=== PATIENT | female | born 1955 | race Caucasian/White ===

== ENCOUNTER 2019-05-29 20:23 | Inpatient (IN) | payer OTHER ==
[~2019-05-29] VITALS: Ht 162.6 cm; Wt 99.9 kg
[2019-05-29] MEDS ORDERED: SOD CHLORIDE 0.9% 1,000 ML IV STA (22:33)
--- NOTE | 2019-05-29 22:35 | ERD ---
ER Documentation Chief Complaint Chief Complaint Pt reports short term memory loss that started 1-2 hours ago HPI This is a 63-year-old woman brought in by family members for recent confusion and memory loss, patient lost her keys outside of her front door and could not find them and called a family member to help her out. He states Emma had trouble recalling the events of today including how she got to his house (he drove her to his house because she appeared confused). She admits to not being able to think clearly. She denies headache or blurry vision, no weakness in her arms or legs, no slurred speech, no chest pain or shortness of breath, no fevers or chills, no dysuria. ROS All systems reviewed and are negative except as per history of present illness. Allergies Allergies: Coded Allergies: No Known Allergy (Unverified , 05/29/19) PMhx/Soc Obesity, hypertension, hypothyroidism Medical and Surgical Hx: pt denies Surgical Hx Hx Cardiac Disorders: Yes (HTN, HLD) Hx Miscellaneous Medical Probl: Yes (HYPOTHYROIDISM) Hx Alcohol Use: Yes Hx Substance Use: No Hx Tobacco Use: No Smoking Status: Unknown if ever smoked FmHx Family History: No diabetes Physical Exam Vitals Vital Signs Date Temp Pulse Resp B/P (MAP) Pulse Ox O2 O2 Flow FiO2 Time Delivery Rate 05/29/19 99 18 154/71 99 Room Air 23:48 (98) 05/29/19 97.8 87 16 187/81 100 20:32 (116) Physical Exam GENERAL: Well-developed, well-nourished, well-hydrated, in no apparent distress, looks nontoxic in appearance HEENT: Moist mucous membranes, pink conjunctiva, no cervical spine tenderness or step-off deformities, no goiter, no jaundice or icterus, extraocular movements intact without pain. No submandibular induration, and no pharyngeal erythema NEURO: Alert and oriented 3, cranial nerves II through XII intact bilaterally, pupils equal round reactive to light, no focal deficits or facial asymmetry, sensation intact distally Strength 5/5 in upper and lower extremities bilaterally CARDIAC: Regular rate and rhythm, no murmurs rubs or gallops LUNGS: Clear bilaterally no wheezing crackles or stridor ABDOMEN: Soft nontender, no guarding, no rigidity, no rebound, no psoas sign no obturator sign. Normoactive bowel sounds SKIN: Warm and dry to touch, no abrasions, contusions, or hematomas, no lacerations, no ecchymosis, no target lesions, and without ulcers EXTREMITIES: No clubbing cyanosis or edema, calves are bilaterally symmetrical, no Homans sign, no popliteal cord sign. Distal pulses equal and bilateral PSYCH: Normal affect without agitation or irritability Result Diagram: 05/29/19224605/29/192246 Results 24 hrs Laboratory Tests Test 05/29/19 22:47 White Blood Count 10.4 10^3/ul Red Blood Count 4.94 10^6/ul Hemoglobin 14.7 g/dl Hematocrit 45.6 % Mean Corpuscular Volume 92.3 fl Mean Corpuscular Hemoglobin 29.8 pg Mean Corpuscular Hemoglobin Concent 32.2 g/dl Red Cell Distribution Width 11.9 % Platelet Count 215 10^3/UL Mean Platelet Volume 11.3 fl Immature Granulocytes % 0.300 % Neutrophils % 87.5 % Lymphocytes % 8.7 % Monocytes % 3.0 % Eosinophils % 0.1 % Basophils % 0.4 % Nucleated Red Blood Cells % 0.0 /100WBC Immature Granulocytes # 0.030 10^3/ul Neutrophils # 9.1 10^3/ul Lymphocytes # 0.9 10^3/ul Monocytes # 0.3 10^3/ul Eosinophils # 0.0 10^3/ul Basophils # 0.0 10^3/ul Nucleated Red Blood Cells # 0.0 10^3/ul Urine Color YELLOW Urine Clarity SLIGHTLY CLOUDY Urine pH 5.0 Urine Specific [place] 1.021 Urine Ketones TRACE mg/dL Urine Nitrite NEGATIVE mg/dL Urine Bilirubin NEGATIVE mg/dL Urine Urobilinogen NEGATIVE mg/dL Urine Leukocyte Esterase 3+ Clifford/ul Urine Microscopic RBC 9 /HPF Urine Microscopic WBC 106 /HPF Urine Mucus FEW /HPF Urine Hemoglobin 1+ mg/dL Urine Glucose NEGATIVE mg/dL Urine Total Protein NEGATIVE mg/dl Sodium Level 142 mmol/L Potassium Level 3.8 mmol/L Chloride Level 105 mmol/L Carbon Dioxide Level 26 mmol/L Anion Gap 11 Blood Urea Nitrogen 14 mg/dl Creatinine 0.62 mg/dl Est Glomerular Filtrat Rate mL/min > 60 mL/min Glucose Level 150 mg/dl Calcium Level 9.4 mg/dl Total Bilirubin 0.3 mg/dl Direct Bilirubin 0.00 mg/dl Indirect Bilirubin 0.3 mg/dl Aspartate Amino Transf (AST/SGOT) 26 IU/L Alanine Aminotransferase (ALT/SGPT) 25 IU/L Alkaline Phosphatase 114 IU/L Troponin I < 0.012 ng/ml Total Protein 7.8 g/dl Albumin 4.5 g/dl Globulin 3.30 g/dl Albumin/Globulin Ratio 1.36 Lipase 82 U/L Current Medications Medications Dose Sig/Alan Start Time Status Last (Trade) Ordered Route PRN Stop Time Admin Dose Reason Admin Sodium 1,000 ml @ Q1H STAT 05/29/19 DC 05/29/19 Chloride 1,000 mls/hr IV 22:33 22:54 05/29/19 23:32 Ceftriaxone 50 ml @ ONCE ONCE 05/30/19 05/29/19 Sodium 100 mls/hr IVPB 00:00 23:47 05/30/19 00:29 Procedures/MDM IV line was established patient was placed on bus driver/monitor rhythm strip revealed a sinus rhythm at about 80 bpm with upright P and T waves. Patient was afebrile Chest X-ray 1V Interpreted by me: Soft Tissue: No acute abnormalities Bones: No acute abnormalities Mediastinum/Cardiac Silhouette/Lungs: No acute abnormalities EKG performed, read by me: 83 bpm, normal sinus rhythm, normal axis, no acute ST segment changes, narrow QRS complex, with good R-wave progression in precordial leads. CT scan of the brain was negative for acute bleed mass or shift I administered 1 L normal saline IV CBC and electrolytes were normal, liver function tests were normal, troponin was negative, urinalysis was positive for infection. I administered ceftriaxone 1 g IV. Patient will be admitted to [facility] for continued IV antibiotics. Departure Diagnosis: Primary Impression: Acute encephalopathy Additional Impressions: Acute UTI Altered mental status Altered mental status type: disorientation Qualified Codes: R41.0 - Disorientation, unspecified Condition: ALANA Martinez MD May 29, 2019 22:35
[2019-05-30] MEDS ORDERED: CEFTRIAXONE 1 GM/50 ML (PMX) 50 ML IVPB ONE
[2019-05-30 01:00] VITALS: Ht 162.6 cm; Wt 99.9 kg
[2019-05-30 01:15] VITALS: BP 174/73; PULSE 101; RESP 18
[2019-05-30] MEDS ORDERED: ASPI-903 PO (01:20)
[2019-05-30] MEDS ORDERED: MEVA40 PO (01:20)
[2019-05-30] MEDS ORDERED: METO-319 PO (01:20)
[2019-05-30] MEDS ORDERED: LEVO112T57 PO (01:20)
[2019-05-30] MEDS ORDERED: NYST15CR28 TOP (01:20)
[2019-05-30] MEDS ORDERED: TRIA15CR55 TOP (01:20)
[2019-05-30] MEDS ORDERED: METOPROLOL 50 MG TAB PO ONE (02:00)
[2019-05-30] MEDS ORDERED: ACETAMINOPHEN 325 MG TAB PO PRN (05:00)
[2019-05-30] MEDS ORDERED: ALBUTEROL/IPRATROPIUM (NEB) 3 ML AMP HHN PRN (05:00)
[2019-05-30] MEDS ORDERED: ONDANSETRON 4 MG INJ IV PRN (05:00)
[2019-05-30] MEDS ORDERED: NACL 0.9% 3 ML SYG IV SCH (05:00)
[2019-05-30] MEDS: LEVOTHYROXINE 112 MCG TAB PO SCH (06:08)
--- NOTE | 2019-05-30 07:39 | HP ---
Date/Time of Note Date/Time of Note DATE: 05/30/19 TIME: 07:33 Assessment/Plan VTE Prophylaxis Pharmacological prophylaxis: heparin Lines/Catheters IV Catheter Type (from Nrs): Saline Lock Assessment/Plan Assessment/Plan 1. Short-term memory loss: Patient has been grieving because of loss of a close family member/friend and I believe this is the cause -Head CT without acute findings -will obtain MRI to make sure there is no organic cause 2. Hypertension: BP not at goal -Adjust antihypertensives as needed 3. Dyslipidemia: Continue statin 4. Hypothyroidism: Continue Synthroid Result Diagram: 05/30/1951105/30/19511 Results 24hrs Laboratory Tests Test 05/29/19 22:47 05/30/19 05:12 White Blood Count 10.4 8.5 Red Blood Count 4.94 4.61 Hemoglobin 14.7 13.6 Hematocrit 45.6 42.7 Mean Corpuscular Volume 92.3 92.6 Mean Corpuscular Hemoglobin 29.8 29.5 Mean Corpuscular Hemoglobin Concent 32.2 31.9 L Red Cell Distribution Width 11.9 12.3 Platelet Count 215 220 Mean Platelet Volume 11.3 H 11.6 H Immature Granulocytes % 0.300 0.400 Neutrophils % 87.5 H 78.4 H Lymphocytes % 8.7 L 13.2 L Monocytes % 3.0 7.1 Eosinophils % 0.1 0.4 Basophils % 0.4 0.5 Nucleated Red Blood Cells % 0.0 0.0 Immature Granulocytes # 0.030 0.030 Neutrophils # 9.1 H 6.7 Lymphocytes # 0.9 1.1 Monocytes # 0.3 0.6 Eosinophils # 0.0 0.0 Basophils # 0.0 0.0 Nucleated Red Blood Cells # 0.0 0.0 Urine Color YELLOW Urine Clarity SLIGHTLY CLOUDY A Urine pH 5.0 Urine Specific [place] 1.021 Urine Ketones TRACE A Urine Nitrite NEGATIVE Urine Bilirubin NEGATIVE Urine Urobilinogen NEGATIVE Urine Leukocyte Esterase 3+ H Urine Microscopic RBC 9 H Urine Microscopic WBC 106 H Urine Mucus FEW A Urine Hemoglobin 1+ H Urine Glucose NEGATIVE Urine Total Protein NEGATIVE Sodium Level 142 141 Potassium Level 3.8 3.9 Chloride Level 105 108 Carbon Dioxide Level 26 25 Anion Gap 11 8 Blood Urea Nitrogen 14 11 Creatinine 0.62 0.53 Est Glomerular Filtrat Rate mL/min > 60 > 60 Glucose Level 150 116 Calcium Level 9.4 9.1 Total Bilirubin 0.3 0.4 Direct Bilirubin 0.00 0.00 Indirect Bilirubin 0.3 0.4 Aspartate Amino Transf (AST/SGOT) 26 24 Alanine Aminotransferase (ALT/SGPT) 25 22 Alkaline Phosphatase 114 97 Troponin I < 0.012 < 0.012 Total Protein 7.8 6.7 # Albumin 4.5 3.7 Globulin 3.30 H 3.00 Albumin/Globulin Ratio 1.36 1.23 Lipase 82 Magnesium Level 2.0 Creatine Kinase 82 Creatine Kinase Index 1.1 Creatinine Kinase MB (Mass) 0.92 Triglycerides Level 148 Cholesterol Level 157 LDL Cholesterol, Calculated 81 HDL Cholesterol 46 Cholesterol/HDL Ratio 3.4 Thyroid Stimulating Hormone (TSH) Pending HPI/ROS Admit Date/Time Admit Date/Time May 30, 2019 at 00:12 Hx of Present Illness Patient is a 63-year-old female with a history of hypertension, dyslipidemia, hypothyroidism who presents the ER complaining of memory loss and confusion. Symptoms been going on for 1 day. She said all of a sudden she started becoming forgetful including not remembering where she puts her keys. Her family is started asking her question and noticed that she was confused. Currently she is at her baseline. Denied focal weakness, slurred speech, diplopia, headache, chest pain, shortness of breath, fever/chills or any other symptoms as a matter. She said she has been grieving for 1 week because of loss of a close friend/family. When presented to the ER, BP 187/81. Head CT without acute findings. UA was consistent with UTI. Basic labs within acceptable range. PMH/Family/Social Past Medical History Medical History: other (see hpi) Medications Current Medications IV Flush (NS 3 ml) 3 ml PER PROTOCOL IV ; Start 05/30/19 at 05:00 Ondansetron HCl (Zofran Inj) 4 mg Q6H PRN IV NAUSEA/VOMITING; Start 05/30/19 at 05:00 Acetaminophen (Tylenol Tab) 650 mg Q6H PRN PO .PAIN 1-3 OR TEMP; Start 05/30/19 at 05:00 Enoxaparin Sodium (Lovenox) 40 mg DAILY SC ; Start 05/30/19 at 09:00 Albuterol/ Ipratropium (Duoneb) 3 ml Q2H RESP THERAPY PRN HHN SHORTNESS OF BREATH; Start 05/30/19 at 05:00 Aspirin (Aspirin) 81 mg QHS PO ; Start 05/30/19 at 21:00 Levothyroxine Sodium (Synthroid) 112 mcg BEFORE BREAKFAST PO Last administered on 05/30/19at 06:08; Admin Dose 112 MCG; Start 05/30/19 at 07:00 Metoprolol Succinate (Toprol Xl) 50 mg BID PO ; Start 05/30/19 at 09:00 Triamcinolone Acetonide (Kenalog 0.1% Cr) 1 applic DAILY TOP ; Start 05/30/19 at 09:00 Atorvastatin Calcium (Lipitor) 10 mg DAILY@21 PO ; Start 05/30/19 at 21:00 Coded Allergies: No Known Allergy (Unverified , 05/29/19) Past Surgical History Past Surgical Hx: other (see hpi) Family History Significant Family History: no pertinent family hx Social History Alcohol Use: none Smoking Status: Former smoker Drug Use: none Exam/Review of Systems Vital Signs Vitals Vital Signs Date Temp Pulse Resp B/P (MAP) Pulse Ox O2 O2 Flow FiO2 Time Delivery Rate 05/30/19 99.2 101 18 174/73 99 Room Air 01:15 (106) Intake and Output 05/29/19 05/29/19 05/30/19 1515:00 23:00 07:00 IntakeIntake Total 750 ml BalanceBalance 750 ml Exam Constitutional: alert, oriented, well developed Head: normocephalic, atraumatic Eyes: EOMI, PERRL Respiratory: clear to auscultation Cardiovascular: regular rate and rhythm, nl pulses Gastrointestinal: soft, non-tender Extremities: normal pulses Neurological: nl mental status, nl speech, nl strength JOHNNY SOLIS MD May 30, 2019 07:39
[2019-05-30] MEDS ORDERED: hydrALAzine 20 MG INJ IV PRN (08:00)
[2019-05-30 08:17] VITALS: BP 141/65; PULSE 81; RESP 18
[2019-05-30] MEDS: TRIAMCINOLONE ACET 0.1% 15 GM CR TOP SCH (09:00)
[2019-05-30] MEDS: METOPROLOL (XL) 50 MG TAB PO SCH ×2 (09:10→20:36)
[2019-05-30] MEDS: ENOXAPARIN 40 MG/0.4 ML SYG SC SCH (09:36)
[2019-05-30 14:00] VITALS: BP 144/67; PULSE 87; RESP 18
--- NOTE | 2019-05-30 18:16 | PN ---
Date/Time of Note Date/Time of Note DATE: 05/30/19 TIME: 18:11 Assessment/Plan VTE Prophylaxis Risk score (from [facility] [place], [place]0 risk: 5 SCD applied (from [facility] [place] Yes Pharmacological prophylaxis: NA/contraindicated Pharm contraindication: low risk/ambulating Lines/Catheters IV Catheter Type (from [facility]): Saline Lock Assessment/Plan Hospital Course 1. Transient global amnesia -Patient had a 7-hour window where she did not have recollection of events, patient has since improved -Patient has been grieving because of loss of a close friend which may have been the cause -Head CT without acute findings -MRI unable to be done secondary to metal implants in the mouth -Neurology consultation obtained 2. Hypertension-BP has improved -Continue home meds 3. Dyslipidemia: Continue statin 4. Hypothyroidism: Continue Synthroid Prophylaxis: SCDs DC planning: Anticipate DC home tomorrow after neurology evaluation Result Diagram: 05/30/1912 05/30/19 0512 Results 24hrs Laboratory Tests Test 05/29/19 22:47 05/30/19 05:12 05/30/19 11:05 White Blood Count 10.4 8.5 Red Blood Count 4.94 4.61 Hemoglobin 14.7 13.6 Hematocrit 45.6 42.7 Mean Corpuscular Volume 92.3 92.6 Mean Corpuscular Hemoglobin 29.8 29.5 Mean Corpuscular 32.2 31.9 L Hemoglobin Concent Red Cell Distribution Width 11.9 12.3 Platelet Count 215 220 Mean Platelet Volume 11.3 H 11.6 H Immature Granulocytes % 0.300 0.400 Neutrophils % 87.5 H 78.4 H Lymphocytes % 8.7 L 13.2 L Monocytes % 3.0 7.1 Eosinophils % 0.1 0.4 Basophils % 0.4 0.5 Nucleated Red Blood Cells % 0.0 0.0 Immature Granulocytes # 0.030 0.030 Neutrophils # 9.1 H 6.7 Lymphocytes # 0.9 1.1 Monocytes # 0.3 0.6 Eosinophils # 0.0 0.0 Basophils # 0.0 0.0 Nucleated Red Blood Cells # 0.0 0.0 Urine Color YELLOW Urine Clarity SLIGHTLY CLOUDY A Urine pH 5.0 Urine Specific [place] 1.021 Urine Ketones TRACE A Urine Nitrite NEGATIVE Urine Bilirubin NEGATIVE Urine Urobilinogen NEGATIVE Urine Leukocyte Esterase 3+ H Urine Microscopic RBC 9 H Urine Microscopic WBC 106 H Urine Mucus FEW A Urine Hemoglobin 1+ H Urine Glucose NEGATIVE Urine Total Protein NEGATIVE Sodium Level 142 141 Potassium Level 3.8 3.9 Chloride Level 105 108 Carbon Dioxide Level 26 25 Anion Gap 11 8 Blood Urea Nitrogen 14 11 Creatinine 0.62 0.53 Est Glomerular Filtrat > 60 > 60 Rate mL/min Glucose Level 150 116 Calcium Level 9.4 9.1 Total Bilirubin 0.3 0.4 Direct Bilirubin 0.00 0.00 Indirect Bilirubin 0.3 0.4 Aspartate Amino 26 24 Transf (AST/SGOT) Alanine 25 22 Aminotransferase (ALT/SGPT) Alkaline Phosphatase 114 97 Troponin I < 0.012 < 0.012 < 0.012 Total Protein 7.8 6.7 # Albumin 4.5 3.7 Globulin 3.30 H 3.00 Albumin/Globulin Ratio 1.36 1.23 Lipase 82 Hemoglobin A1c 5.4 Magnesium Level 2.0 Creatine Kinase 82 81 Creatine Kinase Index 1.1 1.0 Creatinine Kinase MB (Mass) 0.92 0.80 Triglycerides Level 148 Cholesterol Level 157 LDL Cholesterol, Calculated 81 HDL Cholesterol 46 Cholesterol/HDL Ratio 3.4 Thyroid Stimulating 1.020 Hormone (TSH) Subjective 24 Hr Interval Summary Constitutional: no complaints Exam/Review of Systems Exam Vitals Vital Signs Date Temp Pulse Resp B/P (MAP) Pulse Ox O2 O2 Flow FiO2 Time Delivery Rate 05/30/19 98.5 87 18 144/67 96 Room Air 14:00 (92) Intake and Output 05/29/19 05/29/19 05/30/19 1515:00 23:00 07:00 IntakeIntake Total 750 ml BalanceBalance 750 ml Constitutional: alert, oriented Respiratory: clear to auscultation Cardiovascular: regular rate and rhythm Gastrointestinal: soft; No distended Musculoskeletal: nl extremities to inspection Results Results 24hrs Laboratory Tests Test 05/29/19 22:47 05/30/19 05:12 05/30/19 11:05 White Blood Count 10.4 8.5 Red Blood Count 4.94 4.61 Hemoglobin 14.7 13.6 Hematocrit 45.6 42.7 Mean Corpuscular Volume 92.3 92.6 Mean Corpuscular Hemoglobin 29.8 29.5 Mean Corpuscular 32.2 31.9 L Hemoglobin Concent Red Cell Distribution Width 11.9 12.3 Platelet Count 215 220 Mean Platelet Volume 11.3 H 11.6 H Immature Granulocytes % 0.300 0.400 Neutrophils % 87.5 H 78.4 H Lymphocytes % 8.7 L 13.2 L Monocytes % 3.0 7.1 Eosinophils % 0.1 0.4 Basophils % 0.4 0.5 Nucleated Red Blood Cells % 0.0 0.0 Immature Granulocytes # 0.030 0.030 Neutrophils # 9.1 H 6.7 Lymphocytes # 0.9 1.1 Monocytes # 0.3 0.6 Eosinophils # 0.0 0.0 Basophils # 0.0 0.0 Nucleated Red Blood Cells # 0.0 0.0 Urine Color YELLOW Urine Clarity SLIGHTLY CLOUDY A Urine pH 5.0 Urine Specific [place] 1.021 Urine Ketones TRACE A Urine Nitrite NEGATIVE Urine Bilirubin NEGATIVE Urine Urobilinogen NEGATIVE Urine Leukocyte Esterase 3+ H Urine Microscopic RBC 9 H Urine Microscopic WBC 106 H Urine Mucus FEW A Urine Hemoglobin 1+ H Urine Glucose NEGATIVE Urine Total Protein NEGATIVE Sodium Level 142 141 Potassium Level 3.8 3.9 Chloride Level 105 108 Carbon Dioxide Level 26 25 Anion Gap 11 8 Blood Urea Nitrogen 14 11 Creatinine 0.62 0.53 Est Glomerular Filtrat > 60 > 60 Rate mL/min Glucose Level 150 116 Calcium Level 9.4 9.1 Total Bilirubin 0.3 0.4 Direct Bilirubin 0.00 0.00 Indirect Bilirubin 0.3 0.4 Aspartate Amino 26 24 Transf (AST/SGOT) Alanine 25 22 Aminotransferase (ALT/SGPT) Alkaline Phosphatase 114 97 Troponin I < 0.012 < 0.012 < 0.012 Total Protein 7.8 6.7 # Albumin 4.5 3.7 Globulin 3.30 H 3.00 Albumin/Globulin Ratio 1.36 1.23 Lipase 82 Hemoglobin A1c 5.4 Magnesium Level 2.0 Creatine Kinase 82 81 Creatine Kinase Index 1.1 1.0 Creatinine Kinase MB (Mass) 0.92 0.80 Triglycerides Level 148 Cholesterol Level 157 LDL Cholesterol, Calculated 81 HDL Cholesterol 46 Cholesterol/HDL Ratio 3.4 Thyroid Stimulating 1.020 Hormone (TSH) Medications Medication Current Medications IV Flush (NS 3 ml) 3 ml PER PROTOCOL IV ; Start 05/30/19 at 05:00 Ondansetron HCl (Zofran Inj) 4 mg Q6H PRN IV NAUSEA/VOMITING; Start 05/30/19 at 05:00 Acetaminophen (Tylenol Tab) 650 mg Q6H PRN PO .PAIN 1-3 OR TEMP; Start 05/30/19 at 05:00 Enoxaparin Sodium (Lovenox) 40 mg DAILY SC Last administered on 05/30/19at 09:36; Admin Dose 40 MG; Start 05/30/19 at 09:00 Albuterol/ Ipratropium (Duoneb) 3 ml Q2H RESP THERAPY PRN HHN SHORTNESS OF BREATH; Start 05/30/19 at 05:00 Aspirin (Aspirin) 81 mg QHS PO ; Start 05/30/19 at 21:00 Levothyroxine Sodium (Synthroid) 112 mcg BEFORE BREAKFAST PO Last administered on 05/30/19at 06:08; Admin Dose 112 MCG; Start 05/30/19 at 07:00 Metoprolol Succinate (Toprol Xl) 50 mg BID PO Last administered on 05/30/19at 09:10; Admin Dose 50 MG; Start 05/30/19 at 09:00 Triamcinolone Acetonide (Kenalog 0.1% Cr) 1 applic DAILY TOP ; Start 05/30/19 at 09:00 Atorvastatin Calcium (Lipitor) 10 mg DAILY@21 PO ; Start 05/30/19 at 21:00 Hydralazine HCl (Apresoline) 10 mg Q4H PRN IV sbp > 160; Start 05/30/19 at 08:00 PETER NOE May 30, 2019 18:16
[2019-05-30 20:00] VITALS: BP 113/70; PULSE 85; RESP 18
[2019-05-30] MEDS: ASPIRIN 81 MG TAB PO SCH (20:35)
[2019-05-30] MEDS: ATORVASTATIN 10 MG TAB PO SCH (20:35)
[2019-05-30] MEDS ORDERED: LOVASTATIN 20 MG PO SCH (21:00)
[2019-05-31 02:00] VITALS: BP 139/65; PULSE 71; RESP 17
[2019-05-31] MEDS: LEVOTHYROXINE 112 MCG TAB PO SCH (06:05)
[2019-05-31 08:03] VITALS: BP 148/67; PULSE 75; RESP 18
[2019-05-31] MEDS: TRIAMCINOLONE ACET 0.1% 15 GM CR TOP SCH (09:00)
[2019-05-31] MEDS: METOPROLOL (XL) 50 MG TAB PO SCH ×2 (09:34→20:56)
[2019-05-31] MEDS: ENOXAPARIN 40 MG/0.4 ML SYG SC SCH (09:37)
--- NOTE | 2019-05-31 10:34 | RADRPT ---
Echocardiogram Report Patient Name: PACHECO SULLIVANPatient ID: [id number] : 1955 (64y )Study Date: 05/30/2019 1:00:08 PM Gender: FAccession #: [id number] Tech: [facility] [place] Location: [facility] Ref.Physician: JOHNNY SOLIS Height(Cm): 163 BSA: 2.13Weight(Kg): 99.8 Quality: AdequateOrder Physician: JOHNNY SOLIS Account #: Procedures: Echocardiographic Report: Transthoracic echocardiogram with 2D, M-Mode, and doppler examination, poor subcostal images. Indications: Evaluate Left Ventricular function; short-term memory loss. Measurements: 2D/M Mode Doppler Measurement Value Normal Range Measurement Value Normal Range LVIDd 2D 3.5 [ 3.8 - 5.2 ] cm AV Peak Jonatan 1.5 [ 100.0 - 170.0 ] cm/se c LVIDs 2D 2.2 [ 2.2 - 3.5 ] cm AV Peak PG 9.0 [ 2.0 - 9.0 ] mmHg LVPWd 2D 0.9 [ 0.6 - 0.9 ] cm LVOT Peak Jonatan 1.0 [ 70.0 - 110.0 ] cm/sec IVSd 2D 0.9 [ 0.6 - 0.9 ] cm LVOT Peak PG 4.0 [ 2.0 - 6.0 ] mmHg AoR Diam 2D 3.2 [ 2.3 - 3.1 ] cm MV E Peak Jonatan 0.9 [ 60.0 - 130.0 ] cm/sec EF 2D 68.1 [ 54.0 - 74.0 ] percent MV A Peak Jonatan 1.1 [ 100.0 - 120.0 ] cm/se c LA Dimen 2D 3.4 [ 2.7 - 3.8 ] cm MV E/A 0.8 [ 0.8 - 1.5 ] ratio MV PHT 76.0 [ 20.0 - 100.0 ] msec MV Decel Time 259 [ 104 - 258 ] msec MV Decel Hemphill 3 Lat E` Jonatan 0.1 [ 10.0 - 15.0 ] cm/sec Lateral E/E` 10.3 [ 1.0 - 2.0 ] ratio Med E` Jonatan 0.1 cm/sec MV E/A 0.8 [ 0.8 - 1.5 ] ratio MVA PHT 2.9 [ 2.0 - 4.0 ] cm2 TR Peak Jonatan 2.6 [ 100.0 - 280.0 ] cm/se c TR Peak PG 27.0 mmHg PV Peak Jonatan 1.1 [ 40.0 - 80.0 ] cm/sec PV Peak PG 5.0 mmHg RVSP 30.0 [ 10.0 - 36.0 ] mmHg RA Pressure 3.0 mmHg Findings: Left Ventricle: Normal left ventricular systolic function. Normal left ventricular cavity size. Normal left ventricular wall thickness. Ejection fraction is visually estimated at 65 %. Tissue Doppler/Mitral Doppler indices are consistent with impaired relaxation (Stage I diastolic dysfunction). E/E'= 9. Right Ventricle: Normal right ventricular size. Normal right ventricular systolic function. Left Atrium: There is moderate enlargement of left atrium. Right Atrium: There is moderate enlargement of right atrium. Atrial Septum: Not well visualized. Mitral Valve: Normal appearance of the mitral valve. Moderate mitral annular calcification. Trace mitral regurgitation. Aortic Valve: Aortic sclerosis without significant stenosis. No aortic regurgitation. Tricuspid Valve: Normal appearance and function of the tricuspid valve with trace physiologic regurgitation. The estimated Peak RVSP is 30 mmHg. There is trace tricuspid regurgitation. Pulmonic Valve: Normal pulmonic valve appearance. No evidence of pulmonic regurgitation. Pericardium: Normal pericardium with no significant pericardial effusion. Aorta: Normal aortic root. IVC: Normal size and normal respiratory collapse consistent with normal right atrial pressure. Pulmonary Artery: Normal pulmonary artery size. Conclusions: Normal left ventricular systolic function. Normal left ventricular cavity size. Normal left ventricular wall thickness. Ejection fraction is visually estimated at 65 %. Tissue Doppler/Mitral Doppler indices are consistent with impaired relaxation (Stage I diastolic dysfunction). E/E'= 9. Aortic sclerosis without significant stenosis. No aortic regurgitation. Normal appearance of the mitral valve. Moderate mitral annular calcification. Trace mitral regurgitation. The estimated Peak RVSP is 30 mmHg. Normal size and normal respiratory collapse consistent with normal right atrial pressure. Electronically Signed By: Woodrow Cruz 2019-05-31 10:33:55 PDT
--- NOTE | 2019-05-31 10:37 | CONSI ---
Assessment/Plan Assessment/Plan Assessment/Plan (Recall) 63 F c/ Hx of HTN, HLD, and hypothyroidism....who presents for evaluation of ams. The clinical picture could be consistent w/ transient global amnesia.. An acute toxic-metabolic encephalopathy is additionally considered.. An acute cerebrovascular process is not yet excluded.. Seizure is less likely.. Head CT is unrevealing. P: Clarify dental implant metal, then MRI brain w/ and w/o contrast for further characterization if able.. EEG to evaluate for epileptiform activity Cont asa/statin daily for stroke prevention.. [place] as necessary Limit sedating medications where possible PT/OT as necessary UTI and other management and supportive care per primary Will follow clinically Consultation Date/Type/Reason Admit Date/Time May 30, 2019 at 00:12 Type of Consult Neurology Reason for Consultation transient ams/amnesia Requesting Provider: PETER NOE Date/Time of Note DATE: 05/31/19 TIME: 10:32 Hx of Present Illness Patient is a 63-year-old female with a history of hypertension, dyslipidemia, hypothyroidism who presents the ER complaining of memory loss and confusion. Symptoms been going on for 1 day. She said all of a sudden she started becoming forgetful including not remembering where she puts her keys. Her family is started asking her question and noticed that she was confused. Currently she is at her baseline. Denied focal weakness, slurred speech, diplopia, headache, chest pain, shortness of breath, fever/chills or any other symptoms as a matter. She said she has been grieving for 1 week because of loss of a close frie nd/family. When presented to the ER, BP 187/81. Head CT without acute findings. UA was consistent with UTI. Basic labs within acceptable range. Remote severe head injury as a child.. Impeccable memory at baseline. per HPI Objective Exam Vitals Vital Signs Date Temp Pulse Resp B/P (MAP) Pulse Ox O2 O2 Flow FiO2 Time Delivery Rate 05/31/19 98.2 75 18 148/67 97 08:03 (94) 05/30/19 Room Air 14:00 Intake and Output 05/30/19 05/30/19 05/31/19 1515:00 23:00 07:00 IntakeIntake Total 1000 ml 500 ml BalanceBalance 1000 ml 500 ml Exam PE: Gen Appearance: No Apparent Distress HEENT: Normocephalic Cardiovascular: Regular rate Lungs: Clear bilaterally Abdomen: Soft Extremities: Dry NE: The patient was alert and oriented. Language was normal. Fund of knowledge was normal. Pupils were equal and reactive to light. There was no afferent pupillary defect. Visual flores were normal. Funduscopic examination was limited. Extra-ocular movements were full. Ptosis was absent. There was no nystagmus. Facial sensation was normal. Face was symmetric with normal strength. Hearing was intact. Palate movements were normal. Neck strength was normal. There was normal tongue bulk and speed of movement. Tone was normal. Muscle bulk was normal. I did not see fasciculations. Arms and legs were strong. Vibration sensation was normal. Temperature and pinprick sensation was normal. Rapid alternating movements were normal. There was no dysmetria. There was no intention tremor. Gait was deferred due to bedrest. Arm and leg reflexes were symmetric. Damon's sign was absent. Plantar responses were flexor. Results Result Diagram: 05/30/19 0512 05/30/19 0512 Results 24hrs Laboratory Tests Test 05/30/19 11:05 Creatine Kinase 81 Creatine Kinase Index 1.0 Creatinine Kinase MB (Mass) 0.80 Troponin I < 0.012 Past Medical History Medical History: other (see hpi) Home Meds Reported Medications Nystatin* (Nystatin*) 15 Gm Cr, 1 APPLIC TOP, #1 TUB 05/30/19 Triamcinolone Acetonide (Triamcinolone Acetonide) 0.1% - 15 Gm Cream.gm., 1 APPLIC TOP, #1 TUB 05/30/19 Aspirin* (Aspirin* Chew) 81 Mg Tab.chew, 81 MG PO QHS, TAB.CHEW 05/30/19 Metoprolol Succinate* (Toprol XL*) 50 Mg Tab.er.24h, 50 MG PO BID, #30 TAB 05/30/19 Levothyroxine Sodium* (Levothyroxine Sodium*) 112 Mcg Tablet, 112 MCG PO BEFORE BREAKFAST, #30 TAB 05/30/19 Lovastatin (Lovastatin) 40 Mg Tablet, 20 MG PO QHS, TAB 05/30/19 Medications Current Medications IV Flush (NS 3 ml) 3 ml PER PROTOCOL IV ; Start 05/30/19 at 05:00 Ondansetron HCl (Zofran Inj) 4 mg Q6H PRN IV NAUSEA/VOMITING; Start 05/30/19 at 05:00 Acetaminophen (Tylenol Tab) 650 mg Q6H PRN PO .PAIN 1-3 OR TEMP; Start 05/30/19 at 05:00 Enoxaparin Sodium (Lovenox) 40 mg DAILY SC Last administered on 05/31/19at 09:37; Admin Dose 40 MG; Start 05/30/19 at 09:00 Albuterol/ Ipratropium (Duoneb) 3 ml Q2H RESP THERAPY PRN HHN SHORTNESS OF BREATH; Start 05/30/19 at 05:00 Aspirin (Aspirin) 81 mg QHS PO Last administered on 05/30/19at 20:35; Admin Dose 81 MG; Start 05/30/19 at 21:00 Levothyroxine Sodium (Synthroid) 112 mcg BEFORE BREAKFAST PO Last administered on 05/31/19at 06:05; Admin Dose 112 MCG; Start 05/30/19 at 07:00 Metoprolol Succinate (Toprol Xl) 50 mg BID PO Last administered on 05/31/19at 09:34; Admin Dose 50 MG; Start 05/30/19 at 09:00 Triamcinolone Acetonide (Kenalog 0.1% Cr) 1 applic DAILY TOP ; Start 05/30/19 at 09:00 Atorvastatin Calcium (Lipitor) 10 mg DAILY@21 PO Last administered on 05/30/19at 20:35; Admin Dose 10 MG; Start 05/30/19 at 21:00 Hydralazine HCl (Apresoline) 10 mg Q4H PRN IV sbp > 160; Start 05/30/19 at 08:00 Allergies: Coded Allergies: No Known Allergy (Unverified , 05/29/19) Past Surgical History Past Surgical Hx: other (see hpi) Social History Alcohol Use: none Smoking Status: Former smoker Drug Use: none TANMAY CABRERA May 31, 2019 10:37
[2019-05-31] MEDS ORDERED: ALPRAZOLAM 0.25 MG TAB PO ONE (11:00)
[2019-05-31 14:00] VITALS: BP 136/65; PULSE 81; RESP 18
--- NOTE | 2019-05-31 18:14 | PN ---
Date/Time of Note Date/Time of Note DATE: 05/31/19 TIME: 18:13 Assessment/Plan VTE Prophylaxis Risk score (from Nsg)>0 risk: 2 SCD applied (from Nsg): Yes Pharmacological prophylaxis: heparin Lines/Catheters IV Catheter Type (from Nrsg): Saline Lock Assessment/Plan Hospital Course 63 yo femlae with episode of transietn amnesia - Symptoms likely related to psychosocial stress of friend's - MRI/CT wnl - No evidence of toxic/metabolic derangement - Await EEG Discharge likely tomorrow Result Diagram: 05/30/19 0512 05/30/19 0512 Subjective 24 Hr Interval Summary Free Text/Dictation Doing well Symptoms resolved Sad about her friend dying Exam/Review of Systems Exam Vitals Vital Signs Date Temp Pulse Resp B/P (MAP) Pulse Ox O2 O2 Flow FiO2 Time Delivery Rate 05/31/19 98.0 81 18 136/65 95 14:00 (88) 05/30/19 Room Air 14:00 Intake and Output 05/30/19 05/30/19 05/31/19 1515:00 23:00 07:00 IntakeIntake Total 1000 ml 500 ml BalanceBalance 1000 ml 500 ml Constitutional: alert, oriented, well developed Psych: no complaints, nl mood/affect Head: normocephalic, atraumatic Eyes: nl conjunctiva, EOMI, nl lids, nl sclera, PERRL ENMT: nl external ears & nose, nl lips & teeth, nl nasal mucosa & septum Neck: supple, non-tender Respiratory: clear to auscultation, normal air movement Cardiovascular: regular rate and rhythm, nl pulses Gastrointestinal: soft, nl liver, spleen, non-tender Musculoskeletal: nl extremities to inspection, nl gait and stance Extremities: normal pulses Neurological: MANAGER DISCOVERY II-XII intact, nl mental status, nl speech, nl strength Skin: nl turgor; No rash or lesions Lymph: nl lymph nodes Medications Medication Current Medications IV Flush (NS 3 ml) 3 ml PER PROTOCOL IV ; Start 05/30/19 at 05:00 Ondansetron HCl (Zofran Inj) 4 mg Q6H PRN IV NAUSEA/VOMITING; Start 05/30/19 at 05:00 Acetaminophen (Tylenol Tab) 650 mg Q6H PRN PO .PAIN 1-3 OR TEMP; Start 05/30/19 at 05:00 Enoxaparin Sodium (Lovenox) 40 mg DAILY SC Last administered on 05/31/19at 09:37 ; Admin Dose 40 MG; Start 05/30/19 at 09:00 Albuterol/ Ipratropium (Duoneb) 3 ml Q2H RESP THERAPY PRN HHN SHORTNESS OF BREATH; Start 05/30/19 at 05:00 Aspirin (Aspirin) 81 mg QHS PO Last administered on 05/30/19at 20:35; Admin Dose 81 MG; Start 05/30/19 at 21:00 Levothyroxine Sodium (Synthroid) 112 mcg BEFORE BREAKFAST PO Last administered on 05/31/19at 06:05; Admin Dose 112 MCG; Start 05/30/19 at 07:00 Metoprolol Succinate (Toprol Xl) 50 mg BID PO Last administered on 05/31/19at 09:34; Admin Dose 50 MG; Start 05/30/19 at 09:00 Triamcinolone Acetonide (Kenalog 0.1% Cr) 1 applic DAILY TOP ; Start 05/30/19 at 09:00 Atorvastatin Calcium (Lipitor) 10 mg DAILY@21 PO Last administered on 05/30/19at 20:35; Admin Dose 10 MG; Start 05/30/19 at 21:00 Hydralazine HCl (Apresoline) 10 mg Q4H PRN IV sbp > 160; Start 05/30/19 at 08:00 SHANA OBRIEN MD May 31, 2019 18:14
[2019-05-31 20:00] VITALS: BP 143/68; PULSE 79; RESP 18
[2019-05-31] MEDS: ASPIRIN 81 MG TAB PO SCH (20:56)
[2019-05-31] MEDS: ATORVASTATIN 10 MG TAB PO SCH (20:57)
[2019-06-01 02:00] VITALS: BP 131/62; PULSE 72; RESP 17
--- NOTE | 2019-06-01 05:36 | EEG ---
EEG NOTE Report Details DATE OF TEST: 05/31/19 HISTORY: The patient is a 63-year-old F who presents with altered mental status. This EEG is requested to evaluate for an epileptic disorder. SEDATION: None. CONDITIONS OF RECORDING: This EEG was recorded digitally on the [employer] machine, using the [employer] 10-20 System of electrodes plus anterior temporals and [place]. STATES SAMPLED: Wakefulness and drowsiness. FINDINGS: During wakefulness, there is a 10 Hz posterior dominant rhythm, which attenuates normally with eye opening. There is a normal [id number] frequency-amplitude gradient. The remainder of the awake background is normal. Photic stimulation does not elicit any definite driving responses or epi leptiform discharges. Hyperventilation, performed with good effort, produces a negligible change in the background. The patient became drowsy but did not pass into sleep. No asymmetries, focal abnormalities or epileptiform discharges were seen. IMPRESSION: Normal electroencephalogram during wakefulness and drowsiness. COMMENT: A normal EEG does not of itself rule out an epileptic disorder, especially if sleep is not captured, but may decrease the probability of one depending on clinical context. TANMAY CABRERA Jun 01, 2019 05:36
[2019-06-01] MEDS: LEVOTHYROXINE 112 MCG TAB PO SCH (06:05)
[2019-06-01 08:21] VITALS: BP 145/72; PULSE 62; RESP 18
[2019-06-01] MEDS: ENOXAPARIN 40 MG/0.4 ML SYG SC SCH (08:31)
[2019-06-01] MEDS: METOPROLOL (XL) 50 MG TAB PO SCH (08:32)
[2019-06-01] MEDS: TRIAMCINOLONE ACET 0.1% 15 GM CR TOP SCH (08:32)
--- NOTE | 2019-06-01 13:18 | PDOCDIS ---
Discharge Instructions DIAGNOSIS Discharge Diagnosis Transient global amnesia CONDITION [id number] Patient Condition: [id number] Stable FOLLOW UP/APPOINTMENTS Follow-up Plan It is ok for you to return to work on 06/07. Please rest until then SHANA OBRIEN MD Jun 01, 2019 13:18
--- NOTE | 2019-06-01 13:19 | DS ---
Date/Time of Note Date/Time of Note DATE: 06/01/19 TIME: 13:18 Discharge Summary Admission/Discharge Info Admit Date/Time May 30, 2019 at 00:12 Discharge Date/Time Discharge Diagnosis Transient global amnesia Patient Condition: Stable Hospital Course 63 yo femlarobert with episode of transient amnesia - Symptoms likely related to psychosocial stress of friend's - MRI/CT were wnl - No evidence of toxic/metabolic derangement - She underwent EEG which was normal - Had pyuria and UTI which was treated with ceftriaxone She was discharged to self senior care Meds Reported Medications Nystatin* (Nystatin*) 15 Gm Cr, 1 APPLIC TOP, #1 TUB 05/30/19 Triamcinolone Acetonide (Triamcinolone Acetonide) 0.1% - 15 Gm Cream.gm., 1 APPLIC TOP, #1 TUB 05/30/19 Aspirin* (Aspirin* Chew) 81 Mg Tab.chew, 81 MG PO QHS, TAB.CHEW 05/30/19 Metoprolol Succinate* (Toprol XL*) 50 Mg Tab.er.24h, 50 MG PO BID, #30 TAB 05/30/19 Levothyroxine Sodium* (Levothyroxine Sodium*) 112 Mcg Tablet, 112 MCG PO BEFORE BREAKFAST, #30 TAB 05/30/19 Lovastatin (Lovastatin) 40 Mg Tablet, 20 MG PO QHS, TAB 05/30/19 Follow-up Plan It is ok for you to return to work on 06/07. Please rest until then Primary Care Provider Not On Staff Doctor SHANA OBRIEN MD Jun 01, 2019 13:19
[2019-06-01 14:32] VITALS: BP 139/65; PULSE 81; RESP 18
--- NOTE | 2019-06-01 16:27 | CONS ---
Assessment/Plan Assessment/Plan Assessment/Plan (Recall) 63 F c/ Hx of HTN, HLD, and hypothyroidism....who presents for evaluation of ams. The clinical picture could be consistent w/ transient global amnesia.. An acute toxic-metabolic encephalopathy is additionally considered.. MRI brain was reassuringly negative for focal intracranial pathology EEG was normal. P: Cont asa/statin daily for stroke prevention.. [place] as necessary Limit sedating medications where possible PT/OT as necessary UTI and other management and supportive care per primary Will follow clinically Consultation Date/Type/Reason Admit Date/Time May 30, 2019 at 00:12 Type of Consult Neurology Reason for Consultation transient ams/amnesia Requesting Provider: PETER NOE Date/Time of Note DATE: 06/01/19 TIME: 16:16 24 HR Interval Summary Free Text/Dictation Continues acute care Exam/Review of Systems Exam Vitals Vital Signs Date Temp Pulse Resp B/P (MAP) Pulse Ox O2 O2 Flow FiO2 Time Delivery Rate 06/01/19 98.3 81 18 139/65 97 14:32 (89) 05/30/19 Room Air 14:00 Intake and Output 05/31/19 05/31/19 06/01/19 1515:00 23:00 07:00 IntakeIntake Total 480 ml 240 ml BalanceBalance 480 ml 240 ml Results Result Diagram: 05/30/19 0512 05/30/19 0512 TANMAY CABRERA Jun 01, 2019 16:26
== END 2019-06-01 15:30 | disposition home or self-care (01) | DRG 71 ==
LOC: E/R 20:23 → PP2 05-30 00:12
PROVIDERS: ADMIT Internal Medicine; ATTEND Internal Medicine
DX: G45.4 Transient global amnesia (principal); N39.0 Urinary tract infection, site not specified; I10 Essential (primary) hypertension; E78.5 Hyperlipidemia, unspecified; E03.9 Hypothyroidism, unspecified; Z87.891 Personal history of nicotine dependence
CPT/HCPCS: 36415; 70450; 70553; 80053; 80061; 81001; 82550; 82553; 83036; 83690; 83735; 84443; 84484; 85025; 87086; 93005; 93306; 93880; 95819; 96361; 96365; 97161; J0696; J1650; J7030